=== PATIENT | female | born 1985 | race Two or more races ===

== ENCOUNTER 2018-06-21 13:29 | Inpatient (IN) | payer OTHER ==
[~2018-06-21] VITALS: Ht 170.2 cm; Wt 74.8 kg
--- NOTE | 2018-06-21 14:06 | PHYS DOC ---
Adult General Chief Complaint Chief Complaint: LOWER EXT PAIN HPI HPI Patient is a 33 year old female who presents to the emergency room with complaints of left ankle pain and swelling without injury since yesterday. Patient states the pain radiates up the back of her calf and her posterior left thigh. She states that 2 months ago she was seen at [facility] within the same symptoms were experienced in both of her legs. At that time she was diagnosed with cellulitis and prescribed some antibiotics. Currently the patient reports her pain as a 10 out of 10 on the pain scale she has not taken anything for relief of her pain prior to arrival to the emergency department. She states that the pain increases when she bears weight on the affected extremity therefore she has been using a cane to walk around. Review of Systems Review of Systems Constitutional: Denies fever or chills [] Musculoskeletal: Denies back pain, Reports left ankle swelling and pain that shoots up the back of her leg. Integument: Denies skin lesions, reports redness to left medial ankle Neurologic: Denies headache, focal weakness or sensory changes [] All other systems were reviewed and found to be within normal limits, except as documented in this note. Current Medications Current Medications Current Medications Medications (Trade) Dose Ordered Sig/Iker Start Time Stop Time Status Last Admin Dose Admin Morphine Sulfate (Morphine Sulfate) 4 mg 1X ONCE 06/21/18 15:00 06/21/18 15:01 DC 06/21/18 14:53 4 MG Allergies Allergies Allergies Coded Allergies Type Severity Reaction Last Updated Verified No Known Drug Allergies 06/21/18 No Physical Exam Physical Exam Constitutional: Well developed, well nourished, no acute distress, non-toxic appearance. [] HENT: Normocephalic, atraumatic, bilateral external ears normal, nose normal. [] Eyes: PERRLA, conjunctiva normal, no discharge. [] Neck: Normal range of motion, no tenderness, supple, no stridor. [] Cardiovascular:Heart rate regular rhythm, Lungs & Thorax: respirations even and unlabored Skin: Warm, dry, mild erythema proximal to medial left ankle. with warmth noted over the left medial ankle Extremities: No cyanosis, no clubbing, ROM intact, 1+ edema of L ankle, tenderness to palpation of medial, anterior, and lateral left ankle, left foot, and left calf, 2+ pedal and posterior tibial pulses LLE Neurologic: Alert and oriented X 3, normal motor function, normal sensory function, no focal deficits noted. [] Psychologic: Affect normal, judgement normal, mood normal. [] Current Patient Data Vital Signs Vital Signs Date Time Temp Pulse Resp B/P (MAP) Pulse Ox O2 Delivery O2 Flow Rate FiO2 06/21/18 17:30 70 16 114/61 (78) 99 Room Air 06/21/18 13:50 97.9 97.9 Lab Values Laboratory Tests Test 06/21/18 14:36 White Blood Count 9.9 x10^3/uL (4.0-11.0) Red Blood Count 3.55 x10^6/uL (3.50-5.40) Hemoglobin 11.4 g/dL (12.0-15.5) L Hematocrit 32.7 % (36.0-47.0) L Mean Corpuscular Volume 92 fL (79-100) Mean Corpuscular Hemoglobin 32 pg (25-35) Mean Corpuscular Hemoglobin Concent 35 g/dL (31-37) Red Cell Distribution Width 12.6 % (11.5-14.5) Platelet Count 235 x10^3/uL (140-400) Neutrophils (%) (Auto) 77 % (31-73) H Lymphocytes (%) (Auto) 14 % (24-48) L Monocytes (%) (Auto) 8 % (0-9) Eosinophils (%) (Auto) 0 % (0-3) Basophils (%) (Auto) 1 % (0-3) Neutrophils # (Auto) 7.6 x10^3uL (1.8-7.7) Lymphocytes # (Auto) 1.4 x10^3/uL (1.0-4.8) Monocytes # (Auto) 0.8 x10^3/uL (0.0-1.1) Eosinophils # (Auto) 0.0 x10^3/uL (0.0-0.7) Basophils # (Auto) 0.1 x10^3/uL (0.0-0.2) Erythrocyte Sedimentation Rate 13 (0-25) Uric Acid 3.8 mg/dL (2.6-6.0) C-Reactive Protein, Quantitative 8.2 mg/L (0-3.3) H Serum Test, Qualitative Negative (NEG) Laboratory Tests 06/21/18 14:36 EKG EKG [] Radiology/Procedures Radiology/Procedures PROCEDURE: VENOUS LOWER EXTREMITY LEFT Examination: Left Lower Extremity Venous Doppler Ultrasound History: pain Comparison: None Procedure: De La Rosa scale, color flow 2D and spectal waveform analysis images are obtained with and without compression in the area of the common femoral vein, superficial femoral vein - femoral vein junction, main femoral vein (superficial femoral vein) and popliteal vein. Veins of the proximal calf are also imaged. Findings: There is normal duplex flow, color flow and compressibility of all visualized vein segments. No evidence of deep venous thrombus is present. Impression: No evidence of DVT in the visualized left lower extremity venous system. [] PROCEDURE: ANKLE LEFT 3V LEFT ANKLE AP, LATERAL, OBLIQUE Clinical Indication: pain and swelling x 3 days, no injury Comparison: None. Findings: There is no acute fracture or dislocation. Mineralization is normal. Joint spaces are maintained. The ankle mortise is intact. There is no obvious ankle joint effusion. There is moderate ankle soft tissue swelling and subcutaneous edema. IMPRESSION: 1. No acute bone abnormality. 2. Soft tissue swelling. Course & Med Decision Making Course & Med Decision Making Pertinent Labs and Imaging studies reviewed. (See chart for details) Dx: L ankle pain CBC WNL mild anemia, uric acid negative, ESR normal, elevated CRP 8.2. US negative for DVT, L ankle x-ray negative for dislocation or acute fx. Pt reports diffuse ankle tenderness, unable to tolerate ROM, physical exam concerning for septic joint. 1700- spoke to Dr. Alves recommends an MRI of Left ankle to rule out septic joint 0- Spoke with Dr. Nuñez who will admit patient for left ankle pain and further evaluation of possible septic joint. ER PHYSICIAN ATTENDING NOTE: I have personally seen and examined the patient, and agree with the history, physical exam, and plan, as documented by mid-level provider. Dragon Disclaimer Dragon Disclaimer This electronic medical record was generated, in whole or in part, using a voice recognition dictation system. Departure Departure Impression: Primary Impression: Left ankle pain Disposition: 09 ADMITTED INPATIENT Admitting Physician: Hilda Nuñez Condition: STABLE Referrals: UNKNOWN PCP NAME (PCP) ABDON ANTOINE APRN Jun 21, 2018 14:06 DANDRE MICHELLE MD Jun 22, 2018 12:25
[2018-06-21 14:47] LABS: BASO # 0.1 x10^3/uL (0.0-0.2); BASO % 1 % (0-3); EOS % 0 % (0-3); HEMATOCRIT 32.7 % (36.0-47.0); HEMOGLOBIN 11.4 g/dL (12.0-15.5); LYMPH # 1.4 x10^3/uL (1.0-4.8); LYMPH % 14 % (24-48); MEAN CORPUSCULAR HEMOGLOBIN 32 pg (25-35); MEAN CORPUSCULAR HGB CONC 35 g/dL (31-37); MEAN CORPUSCULAR VOLUME 92 fL (79-100); MONO # 0.8 x10^3/uL (0.0-1.1); MONO % 8 % (0-9); NEUT # 7.6 x10^3uL (1.8-7.7); NEUT % 77 % (31-73); PLATELET COUNT 235 x10^3/uL (140-400); RED BLOOD COUNT 3.55 x10^6/uL (3.50-5.40); RED CELL DISTRIBUTION WIDTH 12.6 % (11.5-14.5); WHITE BLOOD COUNT 9.9 x10^3/uL (4.0-11.0)
--- NOTE | 2018-06-21 14:52 | RAD ---
Examination: Left Lower Extremity Venous Doppler Ultrasound History: pain Comparison: None Procedure: De La Rosa scale, color flow 2D and spectal waveform analysis images are obtained with and without compression in the area of the common femoral vein, superficial femoral vein - femoral vein junction, main femoral vein (superficial femoral vein) and popliteal vein. Veins of the proximal calf are also imaged. Findings: There is normal duplex flow, color flow and compressibility of all visualized vein segments. No evidence of deep venous thrombus is present. Impression: No evidence of DVT in the visualized left lower extremity venous system. Electronically signed by: Jelani Otero MD (06/21/2018 2:49 PM) [place] [id number]
[2018-06-21 14:59] LABS: C-REACTIVE PROTEIN 8.2 mg/L (0-3.3); URIC ACID 3.8 mg/dL (2.6-6.0)
[2018-06-21] MEDS ORDERED: MORPHINE SULFATE 4 MG/ML VIAL. IV ONE (15:00)
[2018-06-21 16:02] LABS: PREG TEST PT QUAL NEGATIVE (NEG)
--- NOTE | 2018-06-21 16:50 | RAD ---
LEFT ANKLE AP, LATERAL, OBLIQUE Clinical Indication: pain and swelling x 3 days, no injury Comparison: None. Findings: There is no acute fracture or dislocation. Mineralization is normal. Joint spaces are maintained. The ankle mortise is intact. There is no obvious ankle joint effusion. There is moderate ankle soft tissue swelling and subcutaneous edema. IMPRESSION: 1. No acute bone abnormality. 2. Soft tissue swelling. Electronically signed by: Dannie Mata MD (06/21/2018 4:47 PM) [id number]
[2018-06-21 18:35] VITALS: BP 98/59
[2018-06-21] MEDS ORDERED: LIDOCAINE 1% PF 30 ML VIAL. INJ ONE (18:45)
[2018-06-21] MEDS ORDERED: MORPHINE SULFATE 2 MG/ML VIAL. IV ONE (19:30)
--- NOTE | 2018-06-21 19:31 | PDOC2 ---
CONSULT Date of Consult Date of Consult DATE: 06/21/18 TIME: 19:25 Reason for Consult Reason for Consult: Possible septic arthritis Referring Physician Referring Physician: Savannah Identification/Chief Complaint Chief Complaint L ankle and calf pain Source Source: Patient History of Present Illness Reason for Visit: Pleasant 33 yo Female with a couple day hx of worsening ankle pain felt mainly posteriorly, but circumferentially at ankle. Pain worse with ambulation, radiates up to buttock. Has had episodes like this in the past, but this one is worse. She has noticed a rash at her ankle that she thinks has been getting worse. Usually, these episodes of ankle pain and swelling are bilateral, have been going on for years. She cannot recall any precipitating event. No F/C/N/V/ feeling sick Past Medical History Cardiovascular: No pertinent hx Pulmonary: No pertinent hx Musculoskeletal: Swelling Past Surgical History Past Surgical History: No pertinent history Family History Family History: Hypertension Social History <1 pack per day ALCOHOL: none Drugs: None Lives: with Family Current Medications Current Medications Current Medications Morphine Sulfate (Morphine Sulfate) 4 mg 1X ONCE IV Last administered on 06/21at 14:53; Start 06/21/18 at 15:00; Stop 06/21/18 at 15:01; Status DC Lidocaine HCl (Xylocaine 1% Pf 30ml Vial) 30 ml 1X ONCE INJ ; Start 06/21/18 at 18:45; Stop 06/21/18 at 18:51; Status DC Morphine Sulfate (Morphine Sulfate) 2 mg 1X ONCE IV ; Start 06/21/18 at 19:30 ; Stop 06/21/18 at 19:31 Allergies Allergies: Coded Allergies: No Known Drug Allergies (Unverified , 06/21/18) ROS General: No: Chills, Night Sweats, Fatigue, Malaise, Appetite, Other PSYCHOLOGICAL ROS: No: Anxiety, Behavioral Disorder, Concentration difficultie , Decreased libido, Depression, Disorientation, Hallucinations, Hostility, Irritablity, Memory difficulties, Mood Swings, Obsessive thoughts, Physical abuse, Sexual abuse, Sleep disturbances, Suicidal ideation, Other Eyes: No Blurry vision, No Decreased vision, No Double vision, No Dry eyes, No Excessive tearing, No Eye Pain, No Itchy Eyes, No Loss of vision, No Photophobia , No Scotomata, No Uses contacts, No Uses glasses, No Other HEENT: No: Heacaches, Visual Changes, Hearing change, Nasal congestion, Nasal discharge, Oral lesions, Sinus pain, Sore Throat, Epistaxis, Sneezing, Snoring, Tinnitus, Vertigo, Vocal changes, Other ALLERGY AND IMMUNOLOGY: No: Hives, Insect Bite Sensitivity, Itchy/Watery Eyes, Nasal Congestion, Post Nasal Drip, Seasonal Allergies, Other Hematological and Lymphatic: No: Bleeding Problems, Blood Clots, Blood Transfusions, Brusing, Night Sweats, Pallor, Swollen Lymph Nodes, Other ENDOCRINE: No: Breast Changes, Galactorrhea, Hair Pattern Changes, Hot Flashes , Malaise/lethargy, Mood Swings, Palpitations, Polydipsia/polyuria, Skin Changes , Temperature Intolerance, Unexpected Weight Changes, Other Respiratory: No: Cough, Hemoptysis, Orthopnea, Pleuritic Pain, Shortness of breath, SOB with excertion, Sputum Changes, Stridor, Tachypnea, Wheezing, Other Cardiovascular: No Chest Pain, No Palpitations, No Orthopnea, No Paroxysmal Noc. Dyspnea, No Edema, No Lt Headedness, No Other Gastrointestinal: No Nausea, No Vomiting, No Abdominal Pain, No Diarrhea, No Constipation, No Melena, No Hematochezia, No Other Genitourinary: No Dysuria, No Frequency, No Incontinence, No Hematuria, No Retention, No Discharge, No Urgency, No Pain, No Flank Pain, No Other, No , No , No , No , No , No , No Musculoskeletal: Yes Joint Pain, Yes Joint Stiffness, Yes Muscle Pain Neurological: No Behavorial Changes, No Bowel/Bladder ControlChng, No Confusion , No Dizziness, No Gait Disturbance, No Headaches, No Impaired Coord/balance, No Memory Loss, No Numbness/Tingling, No Seizures, No Speech Problems, No Tremors, No Visual Changes, No Weakness, No Other Skin: Yes Rash Physical Exam General: Alert, Oriented X3, mild distress HEENT: Atraumatic, EOMI Lungs: Other (RRR, DP 2+) Abdomen: Soft, No tenderness Extremities: No edema (other than at left ankle, as below), Normal pulses Skin: Other (mildly cellulitic, hand sized, rash posterior ankle/hindfoot. No other rashe on extremities, abd, back, no nail changes) Neuro: Normal speech, Strength at 5/5 X4 ext, Sensation intact Psych/Mental Status: Mental status NL, Mood NL MUSCULOSKELETAL: Other (rash at postrior L ankle. No pain with PROM. edema medially and laterally at ankle. Pain in ankle joint with any ROM. 2-3mm old superficial abrasion centrally at dorsum of foot. tender all around ankle) Vitals VITALS Vital Signs Date Time Temp Pulse Resp B/P (MAP) Pulse Ox O2 Delivery O2 Flow Rate FiO2 06/21/18 18:35 98.5 77 16 98/59 (72) 100 Room Air 98.5 Labs Labs Laboratory Tests Test 06/21/18 14:36 White Blood Count 9.9 x10^3/uL (4.0-11.0) Red Blood Count 3.55 x10^6/uL (3.50-5.40) Hemoglobin 11.4 g/dL (12.0-15.5) Hematocrit 32.7 % (36.0-47.0) Mean Corpuscular Volume 92 fL (79-100) Mean Corpuscular Hemoglobin 32 pg (25-35) Mean Corpuscular Hemoglobin Concent 35 g/dL (31-37) Red Cell Distribution Width 12.6 % (11.5-14.5) Platelet Count 235 x10^3/uL (140-400) Neutrophils (%) (Auto) 77 % (31-73) Lymphocytes (%) (Auto) 14 % (24-48) Monocytes (%) (Auto) 8 % (0-9) Eosinophils (%) (Auto) 0 % (0-3) Basophils (%) (Auto) 1 % (0-3) Neutrophils # (Auto) 7.6 x10^3uL (1.8-7.7) Lymphocytes # (Auto) 1.4 x10^3/uL (1.0-4.8) Monocytes # (Auto) 0.8 x10^3/uL (0.0-1.1) Eosinophils # (Auto) 0.0 x10^3/uL (0.0-0.7) Basophils # (Auto) 0.1 x10^3/uL (0.0-0.2) Erythrocyte Sedimentation Rate 13 (0-25) Uric Acid 3.8 mg/dL (2.6-6.0) C-Reactive Protein, Quantitative 8.2 mg/L (0-3.3) Serum Test, Qualitative Negative (NEG) Laboratory Tests Test 06/21/18 14:36 White Blood Count 9.9 x10^3/uL (4.0-11.0) Red Blood Count 3.55 x10^6/uL (3.50-5.40) Hemoglobin 11.4 g/dL (12.0-15.5) Hematocrit 32.7 % (36.0-47.0) Mean Corpuscular Volume 92 fL (79-100) Mean Corpuscular Hemoglobin 32 pg (25-35) Mean Corpuscular Hemoglobin Concent 35 g/dL (31-37) Red Cell Distribution Width 12.6 % (11.5-14.5) Platelet Count 235 x10^3/uL (140-400) Neutrophils (%) (Auto) 77 % (31-73) Lymphocytes (%) (Auto) 14 % (24-48) Monocytes (%) (Auto) 8 % (0-9) Eosinophils (%) (Auto) 0 % (0-3) Basophils (%) (Auto) 1 % (0-3) Neutrophils # (Auto) 7.6 x10^3uL (1.8-7.7) Lymphocytes # (Auto) 1.4 x10^3/uL (1.0-4.8) Monocytes # (Auto) 0.8 x10^3/uL (0.0-1.1) Eosinophils # (Auto) 0.0 x10^3/uL (0.0-0.7) Basophils # (Auto) 0.1 x10^3/uL (0.0-0.2) Erythrocyte Sedimentation Rate 13 (0-25) Uric Acid 3.8 mg/dL (2.6-6.0) C-Reactive Protein, Quantitative 8.2 mg/L (0-3.3) Serum Test, Qualitative Negative (NEG) Images Images ankle xrays interpreted by myself, no fx, no DJD Assessment/Plan Assessment/Plan Given history, labs and exam, I cannot exclude a septic joint, therefore I discussed the risks, benefits, alternatives and rationale behind left ankle aspiration. She agreed to proceed. After sterile prep, I injected plain lidocaine into the anteromedial subq tissue, and after allowing this to set up, I attempted aspiration through an anteromedial portal which yielded a dry tap. The area was cleansed and a sterile dressing was applied. Given this finding, septic process unlikely Her history and exam do not seems consistent with cellulitis. This may represent a dermatitis, inflammatory arthritide, among others DEA JESUS II, MD Jun 21, 2018 19:31
[2018-06-21] MEDS ORDERED: ONDANSETRON PF 4 MG/2 ML VIAL. IV PRN (20:00)
[2018-06-21] MEDS ORDERED: HYDROcodone/APAP 5/325MG 1 TAB TABLET PO PRN (20:00)
[2018-06-21] MEDS ORDERED: MORPHINE SULFATE 2 MG/ML VIAL. IV PRN (20:00)
[2018-06-21] MEDS ORDERED: NICOTINE 21MG PATCH. TD SCH (21:15)
--- NOTE | 2018-06-21 22:33 | SSS ---
ADMIT DATE: 06/21/2018 CHIEF COMPLAINT: Left ankle joint pain. HISTORY OF PRESENT ILLNESS: The patient is a pleasant, healthy 33-year-old female who presents with left ankle pain. We did a full workup in the ER, most of it is negative, but we are concerned this joint is quite swollen and erythematous, also it could be infected. I discussed the case with ER physician. The patient does have 10/10 pain. We are going to admit the patient, give IV antibiotics and consult Orthopedics. PAST MEDICAL HISTORY: Benign. ALLERGIES: None. FAMILY HISTORY: Hypertension. SOCIAL HISTORY: She does not drink, smoke or take drugs. MEDICATIONS: Reviewed, please refer to the MRAD. REVIEW OF SYSTEMS: GENERAL: No history of weight change, weakness or fevers. SKIN: No bruising, hair changes or rashes. EYES: No blurred, double or loss of vision. NOSE AND THROAT: No history of nosebleeds, hoarseness or sore throat. HEART: No history of palpitations, chest pain or shortness of breath on exertion. LUNGS: Denies cough, hemoptysis, wheezing or shortness of breath. GASTROINTESTINAL: Denies changes in appetite, nausea, vomiting, diarrhea or constipation. GENITOURINARY: No history of frequency, urgency, hesitancy or nocturia. NEUROLOGIC: Denies history of numbness, tingling, tremor or weakness. PSYCHIATRIC: No history of panic, anxiety or depression. ENDOCRINE: No history of heat or cold intolerance, polyuria or polydipsia. EXTREMITIES: She complains of left foot pain. PHYSICAL EXAMINATION: VITAL SIGNS: Temperature afebrile, pulse 90, respirations 18, blood pressure 144/90. GENERAL: She is sleeping in the ER. Her girlfriend is present. HEART: Normal S1, S2. LUNGS: Clear. ABDOMEN: Soft. EXTREMITIES: No edema. The left ankle is swollen and it is erythematous. ENDOCRINE: No thyromegaly. LYMPHATICS: No cervical nodes. HEMATOPOIETIC: No bruising. LABORATORY DATA: Pending. ASSESSMENT AND PLAN: Left ankle pain, suspect possible septic joint. We started IV antibiotics. I have consulted Orthopedics. The patient has been admitted to the floor. The nurse just called me a few minutes ago and said the patient left AMA. DISPOSITION: Home. ACTIVITY: As tolerated. DIET: Low sodium. MEDICATIONS: Please see the MRAD. KRYSTALL Pedrito HI DO DR: CANDIDA/hank JOB#: [id number] / [id number]
== END 2018-06-21 21:15 | disposition left against medical advice (07) | DRG 550 ==
LOC: ER 13:29 → 4 NORTH 17:33
PROVIDERS: ADMIT Internal Medicine; ATTEND Internal Medicine
DX: M00.9 Pyogenic arthritis, unspecified (principal); Z82.49 Family history of ischemic heart disease and other diseases of the circulatory system
CPT/HCPCS: 36415; 73610; 84550; 84703; 85025; 85651; 86140; 93971; J2270

== ENCOUNTER 2020-10-12 03:37 | Emergency (ER) | payer SELFPAY ==
[~2020-10-12] VITALS: Ht 170.2 cm; Wt 77.3 kg
[2020-10-12] MEDS ORDERED: AMOX500C PO (04:01)
--- NOTE | 2020-10-12 04:01 | PHYS DOC ---
Past Medical History Past Medical History: Seizure, Other Additional Past Medical Histor: cellulitis of bilat lower legs Past Surgical History: No Surgical History Smoking Status: Current Every Day Smoker Alcohol Use: Occasionally Drug Use: None General Adult EDM: Chief Complaint: SORE THROAT HPI: HPI: Patient is a 35 year old female who presented to ER for evaluation of sore throat and left ear pain for several days. Patient denies any cough or fever. Patient denies any abdominal pain, no nausea vomiting. Patient denies any chest pain, no trouble breathing, no headache. Review of Systems: Review of Systems: Constitutional: Denies fever or chills. [] Eyes: Denies change in visual acuity. [] HENT: Denies nasal congestion , POSITIVE FOR sore throat AND LEFT EAR PAIN Respiratory: Denies cough or shortness of breath. [] Cardiovascular: Denies chest pain or edema. [] GI: Denies abdominal pain, nausea, vomiting, bloody stools or diarrhea. [] : Denies dysuria. [] Musculoskeletal: Denies back pain or joint pain. [] Integument: Denies rash. [] Neurologic: Denies headache, focal weakness or sensory changes. [] Endocrine: Denies polyuria or polydipsia. [] Lymphatic: Denies swollen glands. [] Psychiatric: Denies depression or anxiety. [] Heart Score: Risk Factors: Risk Factors: DM, Current or recent (<one month) smoker, HTN, HLP, family history of CAD, obesity. Risk Scores: Score 0 - 3: 2.5% MACE over next 6 weeks - Discharge Home Score 4 - 6: 20.3% MACE over next 6 weeks - Admit for Clinical Observation Score 7 - 10: 72.7% MACE over next 6 weeks - Early Invasive Strategies Allergies: Allergies: Allergies Coded Allergies Type Severity Reaction Last Updated Verified No Known Drug Allergies 06/21/18 No Physical Exam: PE: Constitutional: Well developed, well nourished, no acute distress, non-toxic a ppearance. [] HENT: Normocephalic, atraumatic, bilateral external ears normal, bilateral tonsillar hypertrophy, with exudation, erythema, uvula is midline. Eyes: PERRLA, EOMI, conjunctiva normal, no discharge. [] Neck: Normal range of motion, no tenderness, supple, no stridor. [] Cardiovascular:Heart rate regular rhythm, no murmur [] Lungs & Thorax: Bilateral breath sounds clear to auscultation [] Skin: Warm, dry, no erythema, no rash. [] Neurologic: Alert and oriented X 3, normal motor function, normal sensory function, no focal deficits noted. [] Psychologic: Affect normal, judgement normal, mood normal. [] Current Patient Data: Labs: Current Medications Medications (Trade) Dose Ordered Sig/Iker Route PRN Reason Start Time Stop Time Status Last Admin Dose Admin Ketorolac Tromethamine (Toradol Im) 60 mg 1X ONCE IM 10/12/20 04:30 10/12/20 04:31 DC 10/12/20 04:34 Methylprednisolone Sodium Succinate (SOLU-Medrol 125MG VIAL) 125 mg 1X ONCE IM 10/12/20 04:30 10/12/20 04:31 DC 10/12/20 04:28 Ceftriaxone Sodium (Rocephin Im) 1 gm 1X ONCE IM 10/12/20 04:30 10/12/20 04:31 DC 10/12/20 04:31 Ceftriaxone Sodium (Rocephin Im) 1 gm STK-MED ONCE IM 10/12/20 04:22 10/12/20 04:22 DC EKG: EKG: [] Radiology/Procedures: Radiology/Procedures: [] Course & Med Decision Making: Course & Med Decision Making Pertinent Labs and Imaging studies reviewed. (See chart for details) [] Dragon Disclaimer: Dragon Disclaimer: This electronic medical record was generated, in whole or in part, using a voice recognition dictation system. Departure Departure Impression: Primary Impression: Tonsillitis Disposition: 01 DC HOME SELF CARE/HOMELESS Condition: STABLE Referrals: UNKNOWN PCP NAME (PCP) FOLLOW UP WITH YOUR DOCTOR ON TUESDAY FOR REEVALUATION. Patient Instructions: Tonsillitis Additional Instructions: Thank you for visiting our Emergency Department. We appreciate you trusting us with your care. If any additional problems come up don't hesitate to return to visit us. Please follow up with your primary care provider so they can plan additional care if needed and know about the problem that you had. If symptoms worsen come back to the Emergency Department. Any concerning symptoms that start such as chest pain, shortness of air, weakness or numbness on one side of the body, running high fevers or any other concerning symptoms return to the ER. [facility] [address] [place] [address] [facility] [address] [place] [address] [facility] [address] [facility] [place] [address] [facility] [address] [place] [address] [facility] [address] [place] [address] [facility] [address] [place] [address] [facility] [address] [place] [address] [facility] [address] [place] [address] [facility] [address] [place] [address] [facility] [address] [place] [address] Scripts Amoxicillin (AMOXICILLIN) 500 Mg Capsule 1 CAP PO TID for 10 Days, #30 CAP Prov: CAROL SOLOMON DO 10/12/20 CAROL SOLOMON DO Oct 12, 2020 04:01
[2020-10-12] MEDS ORDERED: cefTRIAXone IM 1 GM VIAL IM ONE ×2 (04:22→04:30)
[2020-10-12 04:26] VITALS: BP 166/78
[2020-10-12] MEDS ORDERED: KETOROLAC 60 MG/2 ML VIAL. IM ONE (04:30)
[2020-10-12] MEDS ORDERED: methylPREDNISolone SOD SUCC PF 125 MG/2 ML VIAL. IM ONE (04:30)
== END 2020-10-12 04:45 | disposition home or self-care (01) ==
LOC: ER 03:37
DX: J03.90 Acute tonsillitis, unspecified (principal); H92.02 Otalgia, left ear; F17.200 Nicotine dependence, unspecified, uncomplicated; Z98.890 Other specified postprocedural states
CPT/HCPCS: 87070; 87880; 96372; 99284; J0696; J1885; J2930